=== PATIENT | male | born 1950 | race Caucasian/White ===

== ENCOUNTER 2024-12-15 10:15 | Outpatient (CLI) | payer MEDICARE | END 2024-12-15 10:16 | disposition home or self-care (01) | LOC: PET 10:15 | PROVIDERS: ATTEND Internal Medicine | DX: C25.2 Malignant neoplasm of tail of pancreas (principal); K76.89 Other specified diseases of liver | CPT/HCPCS: 78815; A9552 ==

== ENCOUNTER 2024-12-22 07:28 | Outpatient (CLI) | payer MEDICARE | END 2024-12-22 07:29 | disposition home or self-care (01) | LOC: SCSMRI 07:28 | PROVIDERS: ATTEND Internal Medicine | DX: C25.2 Malignant neoplasm of tail of pancreas (principal); N28.89 Other specified disorders of kidney and ureter; M62.89 Other specified disorders of muscle | CPT/HCPCS: 70553; 76376 ==

== ENCOUNTER 2025-03-13 08:02 | Outpatient (CLI) | payer MEDICARE ==
[2025-03-13] MEDS ORDERED: Iopamidol 370 76% 100 ML VIAL ONE (11:11)
== END 2025-03-13 08:03 | disposition home or self-care (01) ==
LOC: CT 08:02
PROVIDERS: ATTEND Internal Medicine
DX: C25.2 Malignant neoplasm of tail of pancreas (principal)
CPT/HCPCS: 71260; 74177; J1642; Q9967